=== PATIENT | male | born 1945 | race Caucasian/White ===

== ENCOUNTER 2023-02-28 07:09 | Outpatient (CLI) | payer MEDICARE, OTHER ==
[~2023-02-28] VITALS: Ht 176.5 cm; Wt 89.4 kg
[2023-02-28 07:42] LABS: TOTAL HEMOGLOBIN 12.6 G/dl (14.0-17.9)
[2023-02-28] MEDS ORDERED: albuterol 2.5 MG/3 ML nebule NEB PRN (07:55)
[2023-02-28 08:47] VITALS: PULSE 83; RESP 15; O2SAT 96
== END 2023-02-28 23:59 | disposition home or self-care (01) ==
LOC: RT 07:09
PROVIDERS: ATTEND Internal Medicine
DX: J44.9 Chronic obstructive pulmonary disease, unspecified (principal); R94.2 Abnormal results of pulmonary function studies; J45.991 Cough variant asthma
CPT/HCPCS: 85018; 94060; 94727; 94729; 94760